=== PATIENT | male | born 1985 | race Caucasian/White ===

== ENCOUNTER 2019-05-21 13:42 | Emergency (ER) | payer BC ==
[~2019-05-21] VITALS: Wt 83.2 kg
[~2019-05-21 13:42] MED LIST: ONDA4TAB14 PO; PANT40TA3 PO
[2019-05-21 13:45] VITALS: Wt 83.2 kg
[2019-05-21] MEDS ORDERED: ONDANSETRON 4 MG INJ IV STA (14:11)
[2019-05-21 14:30] VITALS: BP 120/79; PULSE 76; RESP 17
[2019-05-21] MEDS ORDERED: PANTOPRAZOLE 40 MG INJ IV ONE (14:30)
== END 2019-05-21 16:02 | disposition home or self-care (01) ==
LOC: E/R 13:42
DX: K21.9 Gastro-esophageal reflux disease without esophagitis (principal)
CPT/HCPCS: 36415; 80053; 83690; 85025; 96374; 96375; 99284; C9113; J2405

== ENCOUNTER 2019-05-21 17:23 | Emergency (ER) | payer BC ==
[~2019-05-21] VITALS: Wt 82.9 kg
[2019-05-21] MEDS ORDERED: ONDANSETRON 4 MG INJ IV STA (17:47)
[2019-05-21] MEDS ORDERED: METOCLOPRAMIDE 10 MG INJ IV ONE (18:00)
[2019-05-21] MEDS ORDERED: SOD CHLORIDE 0.9% 1,000 ML IV ONE (18:00)
[2019-05-21] MEDS ORDERED: BACLOFEN 10 MG TAB PO ONE (18:30)
[2019-05-21 20:47] VITALS: BP 128/100; PULSE 68; RESP 18
[2019-05-21] MEDS ORDERED: DEXTROSE 5%-0.45% NACL 1,000 ML IV SCH (22:42)
[2019-05-21] MEDS ORDERED: ONDANSETRON 4 MG INJ IV PRN (23:00)
[2019-05-21] MEDS ORDERED: NACL 0.9% 3 ML SYG IV SCH (23:00)
[2019-05-21] MEDS ORDERED: ACETAMINOPHEN 650 MG SUPP PR PRN (23:00)
[2019-05-22] MEDS ORDERED: PANTOPRAZOLE 40 MG INJ IV SCH (06:00)
== END 2019-05-21 22:00 | disposition left against medical advice (07) ==
LOC: E/R 17:23 → MS1 20:17 → UNDOADMOB 20:17 → MS1 22:00
DX: K21.9 Gastro-esophageal reflux disease without esophagitis (principal)
CPT/HCPCS: 96374; 96375; 99284; J2405; J2765; J7030; J7042